=== PATIENT | female | born 1945 | race Caucasian/White ===

== ENCOUNTER 2016-07-31 11:22 | Inpatient (IN) | payer MEDICARE, BC, OTHER ==
[~2016-07-31] VITALS: Ht 147.3 cm; Wt 73.0 kg
[~2016-07-31 11:22] MED LIST: AMLO2.5T PO; CARV12.52 PO; CITA20TA4 PO; ESTR0.5T3 PO; GABA300C5 PO; ZOCO20TA PO
[2016-08-02] MEDS ORDERED: TRAM50TA PO (10:10)
[2016-08-02] MEDS ORDERED: NORE5TAB PO (10:10)
[2016-08-02] MEDS ORDERED: CARI350T20 PO (10:10)
[2016-08-02] MEDS ORDERED: MULT1CHW33 PO (10:10)
[2016-08-21] MEDS ORDERED: HYDR-3580 PO (10:43)
[2016-08-30 08:00] VITALS: BP 136/80; PULSE 89; RESP 19; TEMP 98.1; O2SAT 97
[2016-08-30] MEDS ORDERED: SODIUM CHLORID 0.9% 500 ML IV PRN (08:15)
[2016-08-30] MEDS ORDERED: INSULIN HUMAN REGULAR 1,000 UNITS/10 ML VIAL SQ PRN (08:15)
[2016-08-30] MEDS ORDERED: LACTATED RINGER'S 1000 ML IV PRN (08:15)
[2016-08-30] MEDS ORDERED: CHLORHEXIDINE GLUCONATE 2 % 1 PACK (2 CLOTHS) TOPICAL PRN (08:15)
[2016-08-30] MEDS ORDERED: METOPROLOL TARTRATE 25 MG TAB PO PRN (08:15)
[2016-08-30] MEDS ORDERED: POVIDONE IODINE 5% (ANTISEPSIS KIT) 4 APPLICATIONS EACH NARE PRN (08:15)
[2016-08-30] MEDS ORDERED: POVIDONE IODINE 7.5% SCRUB 118 ML BOTTLE TOPICAL SCH (08:30)
[2016-08-30] MEDS ORDERED: VANCOMYCIN 1000 MG/NS 250 ML (for <70 kg) IV SCH ×2 (08:30)
[2016-08-30] MEDS ORDERED: GENTAMICIN SULFATE 80 MG/2 ML VIAL ONE (09:02)
[2016-08-30] MEDS ORDERED: BUPIVACAINE/EPINEPHRINE 0.25% PF 30 ML VIAL ONE (09:03)
[2016-08-30] MEDS ORDERED: ceFAZolin 2 GM PREMIX 50 ML ONE (10:13)
[2016-08-30] MEDS ORDERED: ARTIFICIAL TEARS OPTH OINT 3.5 APPLIC/3.5 GM TUBO ONE (10:13)
[2016-08-30] MEDS ORDERED: ACETAMINOPHEN 1000 MG/100 ML VIAL IV ONE (10:13)
[2016-08-30] MEDS ORDERED: MIDAZOLAM HCL 2 MG/2 ML VIAL ONE (10:13)
[2016-08-30] MEDS ORDERED: FAMOTIDINE 20 MG/2 ML VIAL ONE (10:14)
[2016-08-30] MEDS ORDERED: DEXAMETHASONE SOD PHOS 4 MG/ML VIAL ONE (10:14)
[2016-08-30] MEDS ORDERED: SUGAMMADEX SODIUM 200 MG/2 ML VIAL IV PUSH ONE ×2 (10:14)
[2016-08-30] MEDS ORDERED: PHENYLEPH/NS 1000 MCG/10 ML SYR IV ONE (12:00)
[2016-08-30] MEDS ORDERED: ONDANSETRON HCL 4 MG/2 ML VIAL IV PUSH ONE (12:00)
[2016-08-30] MEDS ORDERED: PROPOFOL 200 MG/20 ML AMP IV ONE (12:00)
[2016-08-30] MEDS ORDERED: NEOSTIGMINE 3 MG/3 ML SYR IV ONE (12:00)
[2016-08-30] MEDS ORDERED: NORMOSOL R INJ 2,000 ML IV ONE (12:00)
[2016-08-30] MEDS ORDERED: LACTATED RINGER'S 1000 ML INJ 1,000 ML IV SCH (13:21)
[2016-08-30] MEDS ORDERED: fentaNYL CITRATE 250 MCG/5 ML AMP ONE ×3 (13:28→15:32)
[2016-08-30] MEDS ORDERED: CARISOPRODOL 350 MG TAB PO PRN (13:30)
[2016-08-30] MEDS ORDERED: Post-op Orders (for Pharmacy) MISC XX ONE (13:30)
[2016-08-30] MEDS ORDERED: BISACODYL 10 MG SUPP RECTAL PRN (13:30)
[2016-08-30] MEDS ORDERED: ACETAMINOPHEN/HYDROcodone 325 MG/10 MG TAB PO PRN (13:30)
[2016-08-30] MEDS ORDERED: ONDANSETRON HCL 4 MG/2 ML VIAL IV PRN (13:30)
[2016-08-30] MEDS ORDERED: SODIUM CHLORIDE 0.9% FLUSH 5 ML FLUSH IVF PRN (13:30)
--- NOTE | 2016-08-30 13:31 | PD.OP ---
cc: Mat Florence MD; Mitch Florence MD Operative Report Date of Surgery: Aug 30, 2016 Preoperative Diagnosis: Osteophyte disc complex C4 5, C5 6, C6 7. Herniated nucleus pulposis cervical spine. Cervical spinal stenosis. Cervical myelopathy. Cervical radiculopathy Postoperative Diagnosis: Same Procedure: Anterocervical discectomy decompression and bilateral foraminotomies, C4 5. Anterocervical discectomy decompression and bilateral foraminotomies, C5 6. Anterocervical discectomy decompression and bilateral foraminotomy, C6 7. Left anterior iliac crest bone graft Anesthesia: Gen. Surgeon: Mitch lForence Counter Hop(s): PAM Moses Operation and Findings: EBL: 100 cc INDICATIONS: This patient is a 71-year-old female developing significant bilateral right greater than left cervical radiculopathy and cervical spinal stenosis with mild myelopathic findings. She's had a posterior cervical fusion from C4 to C7 and now presents for a staged anterior cervical decompression and fusion at the same levels. NOTE: Elaine Moses PA-C was present for the entire surgical procedure as my nurse first assist. In my medical opinion her skill and care was necessary for proper management of this patient PROCEDURE: The patient was brought to the operating room and anesthetized in the supine position. This patient was positioned supine on the radiolucent table. All pressure points were protected in the anterior cervical spine and iliac crest was scrubbed with alcohol followed by Hibiclens followed by ChloraPrep. A timeout was done and antibiotics were given within 1 hour time window. Lateral radiographic images were used identifying the proper level. A right anterior incision was made in line with skin creases. The platysma was opened in line with the incision. Deep dissection continued in the interval between the carotid sheath and the esophagus. The longus-coli muscles were lifted on both sides and retractors were positioned allowing good exposure. Lateral radiographic images were used to identify the proper level. [place] style interosseous pins were placed at C4 and 5 allowing exposure to that level. The microscope was rolled into the field. A total discectomy was accomplished and posterior osteophytes were removed. The posterior longitudinal ligament and annulus was taken down. Bilateral foraminotomies were accomplished. The endplates were squared up anticipating later bone grafting. A blunt probe could be placed out each foramen without evidence of nerve root compromise. The C4 pin was placed down to C6. An anterior exposure was accomplished. We performed a total discectomy with excision of the posterior annulus and posterior longitudinal ligament. Bilateral foraminotomies were accomplished. Osteophytes were removed. The endplates were squared up anticipating later bone grafting. A blunt probe could be placed out each foramen without evidence of nerve root compromise. The C5 pin was placed down to C7. An anterior exposure was accomplished. We performed a total discectomy with excision of the posterior annulus and posterior longitudinal ligament. Bilateral foraminotomies were accomplished. Osteophytes were removed. The endplates were squared up anticipating later bone grafting. A blunt probe could be placed out each foramen without evidence of nerve root compromise. The left iliac crest was approached. A small stab incision was made allowing percutaneous access to the anterior iliac crest. Multiple cores of cancellous bone were harvested and taken to the back table to be used for later bone grafting. The wound was irrigated anesthetized and closed with 4-0 Vicryl followed by Dermabond. The case was turned over to Dr. Mat Florence for fusion and instrumentation per his dictation. FINDINGS: There was a high-grade stenosis at all 3 levels. There was significant spinal cord compression. The final decompression was felt be very satisfactory. No complication was noted. NOTE: This surgery was performed in 2 parts. The first part was the neurosurgical decompression performed under the variable power stereo microscope by the undersigned in addition to the bone graft. The second portion of the surgery will be performed by the orthopedic spine component by co -surgeon, Dr. Mat Florence for the anterior fusion with interbody cage and anterior plate. The skill of 2 surgeons was necessary to perform distinct separate procedural services as dictated above and dictated in the following operative note by Dr. Mat Florence. Mitch Florence MD Aug 30, 2016 13:31
[2016-08-30] MEDS ORDERED: HYDR-3583 PO (13:33)
[2016-08-30] MEDS ORDERED: ceFAZolin INJ 1,000 MG VIAL IV ONE ×2 (14:30→14:55)
--- NOTE | 2016-08-30 15:08 | RADRPT ---
EXAM DATE/TIME: 08/30/2016 14:38 [facility] COMPARISON: No previous studies available for comparison. INDICATIONS : Cervical 4-7 fusion. MEDICAL HISTORY : None. SURGICAL HISTORY : None. ENCOUNTER: Initial ACUITY: 1 day PAIN SCORE: Non-responsive. LOCATION: Bilateral C-spine. FINDINGS: Surgical screws traverse the bodies of C4, C5, C6, and C7 with a plate placed anteriorly and evidence for anterior fusion. CONCLUSION: Intact immediate postsurgical changes. Rosie Briggs MD on August 30, 2016 at 15:06 Board Certified Radiologist. This report was verified electronically.
--- NOTE | 2016-08-30 15:29 | HHI.PR ---
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
[2016-08-30] MEDS ORDERED: *RESP: ALBUTEROL 2.5 MG/3 ML NEB (PRN) PERIprocedural Use ONLY NEB ONE (15:39)
[2016-08-30] MEDS ORDERED: HYDROmorphone HCL PF 1 MG/ML VIAL ONE (15:56)
[2016-08-30] MEDS ORDERED: DO NOT ADM ANY ANTICOAGULANT DRUGS PRN (16:00)
--- NOTE | 2016-08-30 16:20 | HHI.DCPOC ---
Discharge Care Plan Diagnosis: (1) Cervical spinal stenosis (2) Cervical spine instability (3) Cervical radicular pain Your Health Problems Are: Incision/Drains Inflammation Swelling Goals to Promote Your Health * To prevent worsening of your condition and complications * To maintain your health at the optimal level Directions to Meet Your Goals Take your medications as prescribed Follow your dietary instruction Follow activity as directed Keep your appointments as scheduled Take your immunizations and boosters as scheduled If your symptoms worsen call your PCP, if no PCP go to Urgent Care Center or Emergency Room Smoking is Dangerous to Your Health. Avoid second hand smoke Call the 24-hour hour crisis hotline for domestic abuse at [facility] Aug 30, 2016 16:19
--- NOTE | 2016-08-30 16:21 | HHI.DS ---
Discharge Summary Admission Date Aug 30, 2016 at 07:45 Discharge Date: Aug 31, 2016 Admitting Diagnosis see below Diagnosis: (1) Cervical spinal stenosis Diagnosis: Principal (2) Cervical spine instability Diagnosis: Principal (3) Cervical radicular pain Diagnosis: Principal Procedures Anterior cervical decompression and fusion C4-C7, bone graft. Brief History This is a 71 year old female patient with a 1-2 year history of neck and bilateral shoulder pain. She sought out treatment with Dr. Riddle in 2015. Imaging studies were performed. Conservative measure were pursued at the time including use of medications such as tramadol and soma. She has several painful episodes including one that caused her to present to the ER. She was referred to Dr. Mitch Florence when her condition continued to decline. Further imaging studies were performed and she was found to have multi-level stenosis C4 -7 and instability at C56. Surgical treatment was recommended and she elected to move forward. Posterior cervical fusion was performed 08/21 and she presents for staged anterior cervical fusion. Hospital Course Surgical treatment was performed on the day of admission without complication. She recovered well in PACU and was transferred to the orthopaedic floor. Pain was controlled with IV and oral medications. Her cervical drain was discontinued after 1 day. She was compliant with her cervical brace and all restrictions. After 1 days she was found to be stable and discharged home. She was given instruction to continue her cervical brace for 4-6 week and to pursue a soft, high fiber diet for 72 hours. Pt Condition on Discharge: Stable Discharge Disposition: Discharge Home Discharge Instructions Diet Instructions: As Tolerated, No Restrictions, Soft Diet Activities You Can Perform: See Additionl Instruction Activities to Avoid: Lifting/Bending, Strenuous Activity Additional Activity Instruc.: Brace full-time for 6 weeks New Medications: Hydrocodone-Acetaminophen (Hydrocodone-Acetaminophen) 10-325 mg Tab 1 TAB PO Q4H PRN pain 1-5 #50 TAB Continued Medications: Amlodipine (Amlodipine) 2.5 Mg Tab 2.5 MG PO DAILY Blood Pressure Management #30 Ref 0 TAB Carisoprodol (Carisoprodol) 350 Mg Tab 350 MG PO QID PRN PAIN #0 Ref 0 TAB Carvedilol (Carvedilol) 12.5 Mg Tab 12.5 MG PO DAILY #60 Ref 0 TAB Citalopram (Citalopram) 20 Mg Tab 30 MG PO HS Control Depression #30 Ref 0 TAB Estradiol (Estrace) 0.5 Mg Tab 0.5 MG PO DAILY Estrogen Supplements #30 Ref 0 TAB Gabapentin (Gabapentin) 300 Mg Cap 300 MG PO HS #30 Ref 0 CAP Hydrocodone-Acetaminophen (Hydrocodone-Acetaminophen) 7.5-325 mg Tab 1 TAB PO Q4H PRN PAIN SCALE 1 TO 5 #50 TAB Norethindrone (Norethindrone) 5 Mg Tab 5 MG PO DAILY Ref 0 TAB Simvastatin (Zocor) 20 Mg Tab 20 MG PO DAILY Cholesterol Management #30 Ref 0 TAB Urvashi Crockett Aug 30, 2016 16:20
[2016-08-30 17:00] VITALS: BP 138/78; PULSE 113; RESP 18; TEMP 98.8; O2SAT 97
[2016-08-30 19:45] VITALS: BP 144/86; PULSE 112; RESP 18; TEMP 98.3; O2SAT 98
[2016-08-30] MEDS ORDERED: GABAPENTIN 300 MG CAP PO SCH (21:00)
[2016-08-30] MEDS ORDERED: CITALOPRAM HYDROBROMIDE 20 MG TAB PO SCH (21:00)
[2016-08-30] MEDS: SODIUM CHLORIDE 0.9% FLUSH 5 ML FLUSH IVF SCH (21:00)
[2016-08-30] MEDS: HYDROmorphone HCL PF 2 MG/ML VIAL IV PUSH PRN (21:37)
[2016-08-31] VITALS: O2SAT 97
[2016-08-31 00:45] VITALS: BP 144/69; PULSE 98; RESP 19; TEMP 97.8; O2SAT 98
[2016-08-31] MEDS: HYDROmorphone HCL PF 2 MG/ML VIAL IV PUSH PRN ×2 (01:44→06:58)
[2016-08-31 03:45] VITALS: BP 146/70; PULSE 89; RESP 19; TEMP 96.9; O2SAT 95
[2016-08-31] MEDS: ACETAMINOPHEN/HYDROcodone 325 MG/10 MG TAB PO PRN ×3 (04:41→13:53)
--- NOTE | 2016-08-31 07:39 | PD.ORT.PN ---
Subjective Subjective Remarks Moderate to signficant neck pain last night. A 'little better' this morning after taking 2 po pain pills. Right arm symptoms present but improved. Neck and throat sore. Mild hoarseness. No other complaints or concerns. Objective Vitals Vital Signs Date Time Temp Pulse Resp B/P Pulse Ox O2 Delivery O2 Flow Rate FiO2 08/31/16 07:28 16 08/31/16 03:45 96.9 89 19 146/70 95 08/31/16 00:45 97.8 98 19 144/69 98 08/31/16 00:00 97 Nasal Cannula 2.00 08/30/16 19:56 Nasal Cannula 2.00 08/30/16 19:45 98.3 112 18 144/86 98 08/30/16 17:00 98.8 113 18 138/78 97 08/30/16 16:30 104 16 140/78 94 Nasal Cannula 3 08/30/16 16:15 106 16 138/80 94 Nasal Cannula 3 08/30/16 16:00 106 16 143/85 94 Nasal Cannula 3 08/30/16 15:45 104 16 154/95 95 Nasal Cannula 3 08/30/16 15:30 96 16 139/82 97 T-Piece 10 08/30/16 15:20 97.7 94 16 133/81 97 T-Piece 10 08/30/16 08:00 98.1 89 19 136/80 97 I/O 08/30/16 08/30/16 08/30/16 08/31/16 08/31/16 08/31/16 07:00 15:00 23:00 07:00 15:00 23:00 Intake Total 2630 ml 480 ml Output Total 2520 ml 720 ml Balance 110 ml -240 ml Intake Oral 480 ml 480 ml IV Total 550 ml Other 1600 ml Output Urine Total 2300 ml 700 ml Drainage Total 20 ml 20 ml Estimated Blood Loss 200 ml # Bowel Movements 0 0 Procedures Anterior cervical decompression and fusion C4-C7, bone graft. Objective Remarks Sitting up in bed In cervical collar NAD VSS C/S Anterior dressing and drain in place, mild warmth, no erythema +motor UE, +sens, +nvi Assessment & Plan Ortho Post Op Day #: 1 Problem List: (1) Cervical spinal stenosis (2) Cervical spine instability (3) Cervical radicular pain Assessment and Plan s/p Posterior cervical fusion C4-7 2 weeks ago pod#1 s/p Anterior Cervical fusion C4-7 D/C cervical drain. Ok to change dressing before discharge. D/C harrington catheter. Ok to d/c home later today. Continue cervical brace for 4-6 weeks. PO pain meds written. F/U in 2 weeks as scheduled. Urvashi Crockett Aug 31, 2016 07:39
[2016-08-31 08:33] VITALS: BP 131/73; PULSE 86; RESP 16; TEMP 98.9; O2SAT 97
[2016-08-31] MEDS ORDERED: MULTIVITAMINS/MINERALS THERAPEUTIC TAB PO SCH (09:00)
[2016-08-31] MEDS ORDERED: DOCUSATE SODIUM 100 MG CAP PO SCH (09:00)
[2016-08-31] MEDS ORDERED: amLODIPine BESYLATE 5 MG TAB PO SCH (09:00)
[2016-08-31] MEDS ORDERED: ESTRADIOL 1 MG TAB PO SCH (09:00)
[2016-08-31] MEDS ORDERED: PRAVASTATIN SOD 40 MG TAB PO SCH (09:00)
[2016-08-31] MEDS ORDERED: NORETHINDRONE 5 MG PO SCH ×2 (09:00)
[2016-08-31] MEDS ORDERED: CARVEDILOL 12.5 MG TAB PO SCH (09:00)
[2016-08-31 09:11] VITALS: O2SAT 94
[2016-08-31] MEDS: SODIUM CHLORIDE 0.9% FLUSH 5 ML FLUSH IVF SCH (09:34)
[2016-08-31 12:00] VITALS: BP 134/77; PULSE 83; RESP 16; TEMP 97.9; O2SAT 98
--- NOTE | 2016-09-02 19:58 | MP ---
cc: RAQUEL CONRAD M.D., ALBERT W. M.D. DATE OF SURGERY: 08/30/2016. PREOPERATIVE DIAGNOSIS: 1. C4-5 osteophyte disk complex, spondylolisthesis, spinal stenosis, spinal cord compression 2. C5-6 osteophyte disk complex, spinal stenosis. 3. C6-7 osteophyte disk complex, spinal stenosis, spinal cord compression. 4. Cervical myelopathy with cervical radiculitis and upper extremity weakness. 5. 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 POSTOPERATIVE DIAGNOSIS: 1. C4-5 osteophyte disk complex, spondylolisthesis, spinal stenosis, spinal cord compression 2. C5-6 osteophyte disk complex, spinal stenosis. 3. C6-7 osteophyte disk complex, spinal stenosis, spinal cord compression. 4. Cervical myelopathy with cervical radiculitis and upper extremity weakness. 5. 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 OPERATIVE PROCEDURE PERFORMED: 1. C4-5, C5-6, C6-7 anterior interbody fusion. 2. C4-5, C5-6, C6-7 [employer] ACC anterior cervical cages. 3. C4-7 [employer] Rauscher anterior spinal instrumentation. SURGEON: Mat Florence MD. SERVICE GREETER: Staff. ANESTHESIA: General. ESTIMATED BLOOD LOSS: See the chart. DRAINS: One. CONDITION: Stable. PLAN OF ACTIVITY: Per orders. DESCRIPTION OF THE PROCEDURE IN DETAIL: Dr. Mitch Florence and myself were co-surgeons in this surgical procedure. Dr. Mitch Florence performed the neurodecompressive portion of the procedure in that he performed a C4-5, C5-6, C6-7 anterior cervical diskectomy, anterior decompression using an operative microscope and left anterior iliac crest bone grafting. I was not present for his portion of the procedure. I performed the orthopedic fusion and stabilization portion of the procedure which is well-described in my operative note. The end plates at C6-7 were prepared for fusion. The hyaline cartilage of the end plates was removed using angled curettes and burs. A 610 x 12 ACC cage was placed in the interspace. Under fluoroscopic guidance, anterior iliac crest bone grafting was used for interbody fusion. The end plates at C5-6 were prepared for fusion. The hyaline cartilage at the end plates was removed using angled curettes and burs. The ACC cage was placed in the interspace; this was a 610 x 12 ACC cage. Anterior iliac crest bone grafting was used for interbody fusion under fluoroscopic guidance. The end plates at C4-5 were prepared for fusion using angled curettes and burs. The hyaline cartilage at the end plates was removed during that portion of procedure. A 510 x 12 ACC cage was placed in the interspace. Anterior iliac crest bone grafting was used in the interbody fusion using fluoroscopic guidance. Anterior osteophytes were removed using multiple different types of rongeurs and burs. A 54 mm Spine[employer] Rauscher plate was contoured for the patient's normal cervical lordosis. The two tacks were used under fluoroscopic guidance in appropriate positioning of the plate. Two screws were used in the vertebral body of C4, C5, C6 and C7. Each of the screws in C5, C6 and C7 were 14 mm in length and the screws in C4 were 12 mm in length. Each of the screws were 4.0 mm in outer diameter and these were fixed angle screws. Each of the screws was inserted. Each screw was appropriately locked to the plate. Intraoperative fluoroscopy in he AP and lateral planes confirmed satisfactory position of the bone graft at C4-5, C5-6 and C6-7 and satisfactory position of the ACC cages at C4-5, C5-6 and C6-7 and satisfactory positioning of the anterior spinal instrumentation from C4-7. The wound was irrigated with copious amounts of sterile saline antibiotic solution. The wound itself was dry. It was closed over a 10-[place] Graeme drain. The wound was closed in a routine manner with multiple 3-0 Vicryl sutures. The skin was approximated using running subcuticular 4-0 Vicryl suture. Sterile dressings were applied. The patient was placed in a [place] cervical orthosis. The patient tolerated the procedure well and arrived in the recovery room in stable and satisfactory condition. MD JULES Henriquez/JETT /3:14 PM /7:44 PM
== END 2016-08-31 15:16 | disposition home or self-care (01) | DRG 472 ==
LOC: HSDI 08-30 07:45 → N06A 08-30 16:50
PROVIDERS: ADMIT Orthopaedic Surgery Orthopaedic Surgery of the Spine; ATTEND Orthopaedic Surgery Orthopaedic Surgery of the Spine
PROC: 0RT30ZZ Resection of Cervical Vertebral Disc, Open Approach (ICD-10-PCS; 2016-08-30)
PROC: 0QB33ZZ Excision of Left Pelvic Bone, Percutaneous Approach (ICD-10-PCS; 2016-08-30)
PROC: 0RG10A0 Fusion of Cervical Vertebral Joint with Interbody Fusion Device, Anterior Approach, Anterior Column, Open Approach (ICD-10-PCS; principal; 2016-08-30 10:20)
DX: M50.021 Cervical disc disorder at C4-C5 level with myelopathy (principal); G95.20 Unspecified cord compression; M48.02 Spinal stenosis, cervical region; J44.9 Chronic obstructive pulmonary disease, unspecified; I10 Essential (primary) hypertension; M50.10 Cervical disc disorder with radiculopathy, unspecified cervical region; M25.78 Osteophyte, vertebrae; M43.12 Spondylolisthesis, cervical region; M53.2X2 Spinal instabilities, cervical region; E78.5 Hyperlipidemia, unspecified; G47.30 Sleep apnea, unspecified
CPT/HCPCS: 72040; 76000; 86850; 86900; 86901; 94150; C1713; J0131; J0690; J1100; J1170; J1580; J2250; J2370; J2405; J2710; J3010; J3370; J7050; J7120; J7613

== ENCOUNTER → 2016-08-02 | Outpatient (CLI) | payer MEDICARE, BC, OTHER ==
[~2016-08-02] MED LIST changes: +BACT800T5 PO; +CARI350T20 PO; +CYAN1000P SQ; +HYDR-3533 PO; +HYDR-3580 PO; +HYDR-3583 PO; +IBUP-232 PO; +MULT1CHW33 PO; +NORE5TAB PO; +OXYC1TAB63 PO; +PRED20 PO; +TRAM50TA PO
[2016-08-02 11:19] LABS: AUTOMATED NEUTROPHIL # 5.8 TH/MM3 (1.8-7.7); BASOPHIL # 0.1 TH/MM3 (0-0.2); BASOPHIL % 0.9 % (0.0-2.0); EOSINOPHIL # 0.4 TH/MM3 (0-0.4); EOSINOPHIL % 4.2 % (0.0-4.0); HEMATOCRIT 43.6 % (35.0-46.0); HEMO FLAGS DIFF FINAL; LYMPH % 20.9 % (9.0-44.0); LYMPHOCYTE # 1.8 TH/MM3 (1.0-4.8); MEAN CELL VOLUME 94.3 FL (80.0-100.0); MEAN CORPUSCULAR HEMOGLOBIN 31.7 PG (27.0-34.0); MEAN CORPUSCULAR HGB CONC 33.6 % (32.0-36.0); MONO % 7.3 % (0.0-8.0); NEUT % 66.7 % (16.0-70.0); PLATELET COUNT 260 TH/MM3 (150-450); RED BLOOD COUNT 4.63 MIL/MM3 (4.00-5.30); RED CELL DISTRIBUTION WIDTH 15.1 % (11.6-17.2); WHITE BLOOD COUNT 8.6 TH/MM3 (4.0-11.0)
[2016-08-02 11:25] LABS: BACTERIA, URINE RARE /hpf; BLOOD, URINE TRACE (NEG); COMMENT (UR) CULT NOT INDICATED; CULTURE IF INDICATED CULT NOT INDICATED; GLUCOSE,URINE NEG (NEG); KETONE, URINE NEG (NEG); MUCUS URINE FEW /lpf (OCC); NITRITE,URINE NEG (NEG); PH, URINE 7.5 (5.0-8.5); SQUAMOUS EPITHELIAL CELL URINE 4 /hpf (0-5); URINE COLOR YELLOW (YELLW/STRAW)
--- NOTE | 2016-08-02 14:46 | EKG ---
Date Performed: 08/02/2016 Time Performed: 10:49:18 PTAGE: 71 years EKG: Sinus rhythm NORMAL ECG PREVIOUS TRACING : 11/03/2015 10.52 DOCTOR: Girma Way Interpretating Date/Time 08/02/2016 14:41:37
== END ==
LOC: CPRE 09:34
PROVIDERS: ATTEND Orthopaedic Surgery Orthopaedic Surgery of the Spine
DX: Z01.810 Encounter for preprocedural cardiovascular examination (principal); Z01.812 Encounter for preprocedural laboratory examination; M50.33 Other cervical disc degeneration, cervicothoracic region; M50.320 Other cervical disc degeneration, mid-cervical region, unspecified level
CPT/HCPCS: 36415; 81001; 85025; 93005

== ENCOUNTER 2016-08-21 06:10 | Inpatient (IN) | payer MEDICARE, BC, OTHER ==
[~2016-08-21] VITALS: Ht 147.3 cm; Wt 72.1 kg
[~2016-08-21 06:10] MED LIST changes: -BACT800T5 PO; -CYAN1000P SQ; -HYDR-3533 PO; -HYDR-3580 PO; -HYDR-3583 PO; -OXYC1TAB63 PO
[2016-08-21] MEDS ORDERED: POVIDONE IODINE 5% (ANTISEPSIS KIT) 4 APPLICATIONS EACH NARE PRN (06:45)
[2016-08-21] MEDS ORDERED: METOPROLOL TARTRATE 25 MG TAB PO PRN (06:45)
[2016-08-21] MEDS ORDERED: INSULIN HUMAN REGULAR 1,000 UNITS/10 ML VIAL SQ PRN (06:45)
[2016-08-21] MEDS ORDERED: SODIUM CHLORID 0.9% 500 ML IV PRN (06:45)
[2016-08-21] MEDS: POVIDONE IODINE 7.5% SCRUB 118 ML BOTTLE TOPICAL SCH (06:45)
[2016-08-21] MEDS ORDERED: LACTATED RINGER'S 1000 ML IV PRN (06:45)
[2016-08-21] MEDS ORDERED: CHLORHEXIDINE GLUCONATE 2 % 1 PACK (2 CLOTHS) TOPICAL PRN (06:45)
[2016-08-21] MEDS ORDERED: VANCOMYCIN 1000 MG/NS 250 ML (for <70 kg) IV SCH ×2 (06:45)
[2016-08-21] MEDS ORDERED: GENTAMICIN SULFATE 80 MG/2 ML VIAL ONE (07:08)
[2016-08-21 07:10] VITALS: BP 109/68; PULSE 88; RESP 20; TEMP 98.5; O2SAT 98
[2016-08-21] MEDS ORDERED: BUPIVACAINE/EPINEPHRINE 0.25% 50 ML VIAL ONE (07:11)
[2016-08-21] MEDS ORDERED: GELFOAM SIZE 100 ONE ×2 (07:11→07:12)
[2016-08-21] MEDS ORDERED: MIDAZOLAM HCL 2 MG/2 ML VIAL ONE (07:39)
[2016-08-21] MEDS ORDERED: ACETAMINOPHEN 1000 MG/100 ML VIAL IV ONE (07:40)
[2016-08-21] MEDS ORDERED: fentaNYL CITRATE 250 MCG/5 ML AMP ONE ×2 (07:40→11:13)
[2016-08-21] MEDS ORDERED: SUGAMMADEX SODIUM 200 MG/2 ML VIAL IV PUSH ONE ×2 (07:40)
[2016-08-21] MEDS ORDERED: ceFAZolin 2 GM PREMIX 50 ML ONE (07:59)
[2016-08-21] MEDS ORDERED: FAMOTIDINE 20 MG/2 ML VIAL ONE (08:11)
[2016-08-21] MEDS ORDERED: DEXAMETHASONE SOD PHOS 4 MG/ML VIAL ONE (08:11)
[2016-08-21] MEDS ORDERED: PHENYLEPH/NS 1000 MCG/10 ML SYR IV ONE (09:08)
[2016-08-21] MEDS ORDERED: PROPOFOL 200 MG/20 ML AMP IV ONE (09:08)
[2016-08-21] MEDS ORDERED: ONDANSETRON HCL 4 MG/2 ML VIAL IV PUSH ONE (09:08)
[2016-08-21] MEDS ORDERED: LACTATED RINGER'S 1000 ML INJ 1,000 ML IV ONE (09:09)
[2016-08-21] MEDS ORDERED: NORMOSOL R INJ 1,000 ML IV ONE (09:09)
[2016-08-21] MEDS: LACTATED RINGER'S 1000 ML INJ 1,000 ML IV SCH ×2 (10:34→21:53)
--- NOTE | 2016-08-21 10:42 | PD.OP ---
cc: Mitch Florence MD Operative Report Date of Surgery: Aug 21, 2016 Preoperative Diagnosis: Osteophyte disc complex cervical spine, C4 5, C5 6, C6 7 Cervical radiculopathy. Cervical spinal stenosis Postoperative Diagnosis: Same Procedure: Posterior cervical fusion, C4 5, C5 6, C6 7. Posterior spinal segmental instrumentation, C4 5, C5 6, C6 7. Placement of intra-facet cages C4 5, C5 6, C6 7. Left posterior iliac crest bone graft Anesthesia: Gen. Surgeon: Mitch lForence Shift Mgr(s): PAM Moses Operation and Findings: EBL: 100 cc INDICATIONS: Patient is a 71-year-old female with significant neck and arm pain. Vascular studies shows evidence of cervical stenosis at C4 5, C5 6 and C6 7. The patient has reversal of normal lordosis with advanced degenerative changes. She is a candidate for anterior cervical decompression and fusion C4 to C7. This patient presents for posterior cervical fusion anticipating staged anterior cervical decompression and fusion in approximately 2 weeks. NOTE: Elaine Moses PA-C was present for the entire surgical procedure as my doctor's assistant. In my medical opinion her skill and care was necessary for proper management of this patient PROCEDURE: The patient was brought the operating room and anesthetized in the supine position. The patient was positioned prone on a Matti table. The arms were placed out along the side and taping was utilized to ensure adequate visualization. AP and lateral radiographic images were used identifying the proper level and allowing excellent exposure for purpose of the cervical fusion. A timeout was done and antibiotics were given within a routine time window. A small incision was made over the left iliac crest bone graft. A series of cores of bone graft were harvested with a special percutaneous device. The bone graft was taken to the back table to be mixed with stem cell bone graft for the later part of the case Using AP and lateral radiographs, skin markings were made. On the right side and 18-gauge spinal needle was placed down to the proper level. The left side a separate incision was made and we used the AllergEaseX system. Exposure was afforded down to the proper level. Under visualization, a chisel was placed down to the C C6 7 level. This was confirmed under radiographs to be in proper position. Exposure was satisfactory. This is placed down into the facet joint at that level. A decorticating device was utilized decorticating the bone of the facet above and below. A retractor was placed down over the access chisel allowing exposure to the joint and exposure to the articular cartilage. A drilling system was utilized removing cartilage and bone this region followed by a rasp. On the back table demineralized bone matrix was mixed with Nucel stem cells and a autogenous bone graft. A combination of both these were then paced placed into proper cages. The cages were impacted into the proper position and checked again under AP and lateral fluoroscopic images. A transfixation screw was placed into the cage having excellent fixation into the facet joint of the level above. The back side of the cage was filled with additional bone graft which was tamped into position. The retractor was removed. On the right side a separate incision was made. Using the likewise sequence of access to the same level, an incision was made allowing visualization for placement of an access chisel which was placed into the joint followed by decortication with excellent visualization. A final retractor was positioned holding this while we were able to drill and use the rasp. The joint was prepared and we created a space for the cage. The cage was filled with bone graft and impacted in proper position. A transfixation screw was fixated at that time and alignment was satisfactory. Additional bone graft placed along the posterior aspect of the cage and the facet joint and was tamped into position. At the C5 6 level, this was repeated in the likewise fashion. A decorticating device was utilized decorticating the bone of the facet above and below. A retractor was placed down over the access chisel allowing exposure to the joint and exposure to the articular cartilage. A drilling system was utilized removing cartilage and bone this region followed by a rasp. On the back table demineralized bone matrix was mixed with Nucel stem cells and a autogenous bone graft. A combination of both these were then paced placed into proper cages. The cages were impacted into the proper position and checked again under AP and lateral fluoroscopic images. A transfixation screw was placed into the cage having excellent fixation into the facet joint of the level above. The back side of the cage was filled with additional bone graft which was tamped into position. The retractor was removed. On the right side this was repeated in the likewise fashion. Using the likewise sequence of access to the same level. An access chisel was placed into the joint followed by decortication with excellent visualization. A final retractor was positioned holding this while we were able to drill and use the rasp. The joint was prepared and we created a space for the cage. The cage was filled with bone graft and impacted in proper position. A transfixation screw was fixated at that time and alignment was satisfactory. Additional bone graft placed along the posterior aspect of the cage and the facet joint and was tamped into position. At the C4 5 level, this was repeated in the likewise fashion. A decorticating device was utilized decorticating the bone of the facet above and below. A retractor was placed down over the access chisel allowing exposure to the joint and exposure to the articular cartilage. A drilling system was utilized removing cartilage and bone this region followed by a rasp. On the back table demineralized bone matrix was mixed with Nucel stem cells and a autogenous bone graft. A combination of both these were then paced placed into proper cages. The cages were impacted into the proper position and checked again under AP and lateral fluoroscopic images. A transfixation screw was placed into the cage having excellent fixation into the facet joint of the level above. The back side of the cage was filled with additional bone graft which was tamped into position. The retractor was removed. On the right side this was repeated in the likewise fashion. Using the likewise sequence of access to the same level. An access chisel was placed into the joint followed by decortication with excellent visualization. A final retractor was positioned holding this while we were able to drill and use the rasp. The joint was prepared and we created a space for the cage. The cage was filled with bone graft and impacted in proper position. A transfixation screw was fixated at that time and alignment was satisfactory. Additional bone graft placed along the posterior aspect of the cage and the facet joint and was tamped into position. Intraoperative x-rays in AP and lateral plane showed excellent positioning and stabilization . The wound was irrigated copiously. Hemostasis was controlled. The fascia was closed with interrupted Vicryl suture skin and subcutaneous tissue with 3-0 Vicryl suture followed by Dermabond. The sponge count needle counts and sponge counts were all correct. The patient tolerated the procedure well as taken to the recovery room in satisfactory condition. FINDINGS: There was advanced arthritic changes of each joint at each level. Exposure was excellent. Cage position was felt be very satisfactory. No complication was appreciated. Mitch Florence MD Aug 21, 2016 10:42
[2016-08-21] MEDS ORDERED: HYDR-3580 PO (10:43)
[2016-08-21] MEDS ORDERED: BISACODYL 10 MG SUPP RECTAL PRN (10:45)
[2016-08-21] MEDS ORDERED: MORPHINE SULFATE 4 MG/ML INJ IV PUSH PRN (10:45)
[2016-08-21] MEDS ORDERED: SODIUM CHLORIDE 0.9% FLUSH 5 ML FLUSH IVF PRN (10:45)
[2016-08-21] MEDS ORDERED: ONDANSETRON HCL 4 MG/2 ML VIAL IV PRN (10:45)
[2016-08-21] MEDS ORDERED: PILL SPLITTER OTHER PRN (11:00)
[2016-08-21] MEDS ORDERED: Post-op Orders (for Pharmacy) MISC XX ONE (11:00)
[2016-08-21] MEDS ORDERED: *HYDROmorphone PF 1 MG VIAL PERIprocedural Use ONLY ONE (11:09)
[2016-08-21] MEDS ORDERED: DO NOT ADM ANY ANTICOAGULANT DRUGS PRN (12:00)
[2016-08-21 12:15] VITALS: BP 122/75; PULSE 92; RESP 18; TEMP 97.5; O2SAT 99
[2016-08-21] MEDS: ACETAMINOPHEN/HYDROcodone 325 MG/7.5 MG TAB PO PRN ×2 (14:32→20:39)
[2016-08-21 16:00] VITALS: BP 149/86; PULSE 88; RESP 18; TEMP 97.8; O2SAT 95
--- NOTE | 2016-08-21 17:10 | HHI.DCPOC ---
Discharge Care Plan Diagnosis: (1) Cervical radicular pain (2) Cervical spine instability (3) Cervical spinal stenosis Your Health Problems Are: Incision/Drains Swelling Goals to Promote Your Health * To prevent worsening of your condition and complications * To maintain your health at the optimal level Directions to Meet Your Goals Take your medications as prescribed Follow your dietary instruction Follow activity as directed Keep your appointments as scheduled Take your immunizations and boosters as scheduled If your symptoms worsen call your PCP, if no PCP go to Urgent Care Center or Emergency Room Smoking is Dangerous to Your Health. Avoid second hand smoke Call the 24-hour hour crisis hotline for domestic abuse at [facility] Aug 21, 2016 17:10
--- NOTE | 2016-08-21 17:11 | HHI.DS ---
Discharge Summary Admission Date Aug 21, 2016 at 10:55 Discharge Date: Aug 22, 2016 Admitting Diagnosis see below Diagnosis: (1) Cervical spinal stenosis Diagnosis: Principal (2) Cervical spine instability Diagnosis: Principal (3) Cervical radicular pain Diagnosis: Principal Procedures Posterior cervical fusion C4 to C7, posterior DTRAX instrumentation, bone graft. Brief History This is a 71 year old female patient with a 2 year history of neck pain. She began having increased symptoms at the end of 2014. There was no specific injury at the onset of her symptoms. She sought out medical treatment. She even went to the emergency room for a significant episode of neck spasms. Imaging studies were performed and she was found to have significant degenerative disease C4 to C7. MRI was ordered which did show significant spinal stenosis at each of those levels. Cervical care was pursued including use of medications and narcotics, use of a cervical brace, and activity restrictions. She continued to decline. Surgical treatment was recommended and she elected to move forward with treatment. She presents today for the above-stated surgery. Hospital Course Surgical treatment was performed on the day of admission without complication. She recovered well in PACU and was transferred to the orthopedic floor. Her pain was controlled with IV and oral medications. She did not struggle with any mentation issues following surgery which had been a problem for her in the past. She was compliant with her cervical brace and all restrictions. After one day she was found be stable and discharged home with instruction to continue her cervical brace maritime engineer and also to pursue a high fiber diet for the next 3-5 days. She was given a prescription for narcotic pain medication to take as needed. Pt Condition on Discharge: Stable Discharge Disposition: Discharge Home Discharge Instructions Diet Instructions: As Tolerated, No Restrictions, High Fiber Diet Activities You Can Perform: See Additionl Instruction Additional Activity Instruc.: Brace maritime engineer to cervical spine New Medications: Hydrocodone-Acetaminophen (Hydrocodone-Acetaminophen) 7.5-325 mg Tab 1 TAB PO Q4H PRN PAIN SCALE 1 TO 5 #50 TAB Continued Medications: Amlodipine (Amlodipine) 2.5 Mg Tab 2.5 MG PO DAILY Blood Pressure Management #30 Ref 0 TAB Carisoprodol (Carisoprodol) 350 Mg Tab 350 MG PO QID PRN PAIN #0 Ref 0 TAB Carvedilol (Carvedilol) 12.5 Mg Tab 12.5 MG PO DAILY #60 Ref 0 TAB Citalopram (Citalopram) 20 Mg Tab 30 MG PO HS Control Depression #30 Ref 0 TAB Estradiol (Estrace) 0.5 Mg Tab 0.5 MG PO DAILY Estrogen Supplements #30 Ref 0 TAB Gabapentin (Gabapentin) 300 Mg Cap 300 MG PO HS #30 Ref 0 CAP Multiple Vitamins W/ Minerals (Multi Adult Gummies) 1 Chw Chw 1 CHEW PO DAILY Norethindrone (Norethindrone) 5 Mg Tab 5 MG PO DAILY Ref 0 TAB Simvastatin (Zocor) 20 Mg Tab 20 MG PO DAILY Cholesterol Management #30 Ref 0 TAB Tramadol (Tramadol) 50 Mg Tab 50 MG PO Q4H PRN PAIN Ref 0 TAB Discontinued Medications: Ibuprofen (Ibuprofen) 600 Mg Tab 600 MG PO Q8HR PRN PAIN #15 Ref 0 TAB [facility] Aug 21, 2016 17:11
[2016-08-21 18:10] VITALS: O2SAT 97
[2016-08-21 20:00] VITALS: BP 131/74; PULSE 97; RESP 17; TEMP 97.7; O2SAT 97
[2016-08-21] MEDS: SODIUM CHLORIDE 0.9% FLUSH 5 ML FLUSH IVF SCH (20:39)
[2016-08-21] MEDS: CARISOPRODOL 350 MG TAB PO PRN (20:47)
[2016-08-21] MEDS ORDERED: GABAPENTIN 300 MG CAP PO SCH (21:00)
[2016-08-21] MEDS ORDERED: CITALOPRAM HYDROBROMIDE 20 MG TAB PO SCH (21:00)
[2016-08-21] MEDS ORDERED: PRAVASTATIN SOD 40 MG TAB PO SCH (21:00)
[2016-08-21 22:28] VITALS: O2SAT 98
--- NOTE | 2016-08-21 23:21 | RADRPT ---
EXAM DATE/TIME: 08/21/2016 10:28 [facility] COMPARISON: No previous studies available for comparison. INDICATIONS : C4 to C7 posterior fusion. MEDICAL HISTORY : Chronic obstructive pulmonary disease. Hypertension Gastroesophageal reflux disease. Renal calcu li SURGICAL HISTORY : Cholecystectomy. Hernia repair with mesh. Laminectomy. ENCOUNTER: Initial ACUITY: 1 day PAIN SCORE: Non-responsive. LOCATION: Cervical spine. FINDINGS: Cone down AP and lateral views of the cervical spine were obtained and demonstrate the patient is sta tus post posterior fusion at the C4, C5 and C6 levels. CONCLUSION: Status post posterior fusion. Pedro Ferreira MD on August 21, 2016 at 23:19 Board Certified Radiologist. This report was verified electronically.
[2016-08-22 00:25] VITALS: BP 139/80; PULSE 84; RESP 17; TEMP 98.5; O2SAT 97
[2016-08-22] MEDS: CARISOPRODOL 350 MG TAB PO PRN (02:35)
[2016-08-22] MEDS: ACETAMINOPHEN/HYDROcodone 325 MG/7.5 MG TAB PO PRN ×3 (02:35→12:43)
[2016-08-22] MEDS: POVIDONE IODINE 7.5% SCRUB 118 ML BOTTLE TOPICAL SCH (02:49)
[2016-08-22 04:50] VITALS: BP 131/68; PULSE 77; RESP 16; TEMP 97; O2SAT 97
[2016-08-22] MEDS: LACTATED RINGER'S 1000 ML INJ 1,000 ML IV SCH (05:44)
[2016-08-22 07:51] VITALS: BP 118/69; PULSE 68; RESP 18; TEMP 96.3; O2SAT 93
--- NOTE | 2016-08-22 08:00 | PD.ORT.PN ---
Subjective Subjective Remarks Moderate neck pain. Arms are 'ok'. No new complaints. No throat soreness. Was able to get some rest last night. No problems with mentation after this surgery. Pleased. Objective Vitals Vital Signs Date Time Temp Pulse Resp B/P Pulse Ox O2 Delivery O2 Flow Rate FiO2 08/22/16 07:51 96.3 68 18 118/69 93 08/22/16 04:50 97.0 77 16 131/68 97 08/22/16 00:25 98.5 84 17 139/80 97 08/21/16 22:28 98 BiPAP 3.00 08/21/16 20:00 97.7 97 17 131/74 97 08/21/16 18:10 97 Nasal Cannula 3.00 08/21/16 16:00 97.8 88 18 149/86 95 08/21/16 12:15 97.5 92 18 122/75 99 08/21/16 11:55 98.3 93 20 123/75 94 Nasal Cannula 4 08/21/16 11:45 93 20 123/75 94 Nasal Cannula 4 08/21/16 11:30 94 20 123/76 94 Nasal Cannula 4 08/21/16 11:15 97 20 120/78 95 Nasal Cannula 4 08/21/16 10:57 98.1 112 20 142/84 90 Simple Mask 8 I/O 08/21/16 08/21/16 08/21/16 08/22/16 08/22/16 08/22/16 07:00 15:00 23:00 07:00 15:00 23:00 Intake Total 1760 ml 540 ml 480 ml Output Total 770 ml 875 ml 1000 ml Balance 990 ml -335 ml -520 ml Intake Oral 240 ml 540 ml 480 ml IV Total 120 ml Other 1400 ml Output Urine Total 750 ml 875 ml 1000 ml Estimated Blood Loss 20 ml # Bowel Movements 0 0 0 Procedures Posterior cervical fusion C4 to C7, posterior DTRAX instrumentation, bone graft. 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 Dry dressing changes daily. C/S brace senior tax specialist for 4-6 weeks. D/C harrington cath. PO pain meds as needed. D/C home later today. F/U outpatient in 2 weeks as scheduled. [facility] Aug 22, 2016 08:00
[2016-08-22] MEDS: SODIUM CHLORIDE 0.9% FLUSH 5 ML FLUSH IVF SCH (09:00)
[2016-08-22] MEDS ORDERED: NORETHINDRONE 5 MG PO SCH ×2 (09:00)
[2016-08-22] MEDS ORDERED: amLODIPine BESYLATE 5 MG TAB PO SCH (09:00)
[2016-08-22] MEDS ORDERED: ESTRADIOL 1 MG TAB PO SCH (09:00)
[2016-08-22] MEDS ORDERED: DOCUSATE SODIUM 100 MG CAP PO SCH (09:00)
[2016-08-22] MEDS ORDERED: CARVEDILOL 12.5 MG TAB PO SCH (09:00)
[2016-08-22] MEDS ORDERED: MULTIVITAMINS/MINERALS THERAPEUTIC TAB PO SCH (09:00)
[2016-08-22 12:00] VITALS: BP 143/91; PULSE 75; RESP 18; TEMP 97.4; O2SAT 98
[2016-08-22 14:29] VITALS: O2SAT 97
== END 2016-08-22 14:56 | disposition home or self-care (01) | DRG 472 ==
LOC: HSDC 06:10 → EDSTATUS 10:00 → HSDI 10:55 → N06B 12:06
PROVIDERS: ADMIT Orthopaedic Surgery Orthopaedic Surgery of the Spine; ATTEND Orthopaedic Surgery Orthopaedic Surgery of the Spine
PROC: 0RG2071 Fusion of 2 or more Cervical Vertebral Joints with Autologous Tissue Substitute, Posterior Approach, Posterior Column, Open Approach (ICD-10-PCS; 2016-08-21)
PROC: 0QB30ZZ Excision of Left Pelvic Bone, Open Approach (ICD-10-PCS; 2016-08-21)
PROC: 0RG20A1 (ICD-10-PCS; principal; 2016-08-21 08:22)
DX: M48.02 Spinal stenosis, cervical region (principal); M47.12 Other spondylosis with myelopathy, cervical region; G62.9 Polyneuropathy, unspecified; J44.9 Chronic obstructive pulmonary disease, unspecified; M50.122 Cervical disc disorder at C5-C6 level with radiculopathy; M50.123 Cervical disc disorder at C6-C7 level with radiculopathy; M25.78 Osteophyte, vertebrae; M53.2X2 Spinal instabilities, cervical region; I10 Essential (primary) hypertension; E78.00 Pure hypercholesterolemia, unspecified; E66.9 Obesity, unspecified; M13.89 Other specified arthritis, multiple sites; F32.9 Major depressive disorder, single episode, unspecified; Z68.33 Body mass index [BMI] 33.0-33.9, adult; Z88.0 Allergy status to penicillin; Z88.5 Allergy status to narcotic agent
CPT/HCPCS: 72040; 76000; 94150; C1713; J0131; J0690; J1100; J1170; J1580; J2250; J2370; J2405; J3010; J3370; J7050; J7120; L0150